=== PATIENT | female | born 1970 | race Caucasian/White ===

== ENCOUNTER 2017-11-25 13:52 | Day surgery (SDC) | payer OTHER ==
[~2017-11-25 13:52] MED LIST: LIDOCAINE 2% (SDV) 5 ML INJ
[2017-11-25] MEDS ORDERED: LIDOCAINE 1% (MPF) 30 ML INJ (16:45)
[2017-11-25] MEDS ORDERED: FENTAnyl 50 MCG/ML VIAL (16:48)
[2017-11-25] MEDS ORDERED: PROPOFOL 20 ML (16:48)
[2017-11-25] MEDS ORDERED: SUCCINYLCHOLINE CHLORIDE 100 MG/5 ML SYG IV (16:49)
[2017-11-25] MEDS ORDERED: SUGAMMADEX SODIUM 200 MG/2 ML VIAL IV (16:49)
[2017-11-25] MEDS ORDERED: CEFAZOLIN 1 GM INJ (16:49)
[2017-11-25] MEDS ORDERED: ROCURONIUM 50 MG INJ (16:49)
[2017-11-25] MEDS ORDERED: DIPHENHYDRAMINE 50 MG INJ IV (17:00)
[2017-11-25] MEDS ORDERED: ONDANSETRON 4 MG INJ IV (17:00)
[2017-11-25] MEDS ORDERED: ALBUTEROL 0.083% (NEB) 2.5 MG/3 ML AMP HHN (17:00)
[2017-11-25] MEDS ORDERED: METOCLOPRAMIDE 10 MG INJ IV (17:00)
[2017-11-25] MEDS ORDERED: MEPERIDINE 25 MG INJ IV (17:00)
[2017-11-25] MEDS ORDERED: HYDROmorphONE 1 MG/5 ML IV SYRINGE IV (17:00)
[2017-11-25] MEDS ORDERED: FENTAnyl 50 MCG/ML VIAL IV (17:00)
[2017-11-25] MEDS ORDERED: LABETALOL HCL 20MG INJ (17:36)
[2017-11-25] MEDS ORDERED: KETOROLAC 30 MG INJ IV (18:02)
[2017-11-25] MEDS: HYDROmorphONE 1 MG/5 ML IV SYRINGE IV ×2 (18:08→18:19)
[2017-11-25] MEDS: FENTAnyl 50 MCG/ML VIAL IV ×2 (18:11→18:18)
[2017-11-25] MEDS: morphine SULFATE/PF (10 MG/10 ML) INJ (18:13)
[2017-11-25] MEDS: BACITRACIN/POLYMYXIN 28.35 GM OINT TOP (18:13)
[2017-11-25] MEDS: ROPIVACAINE 0.5 % 30 ML VIAL (18:14)
[2017-11-25] MEDS ORDERED: morphine 2 MG INJ IV (18:30)
== END 2017-11-25 19:28 | disposition home or self-care (01) ==
LOC: SDS 13:52
DX: S83.282A Other tear of lateral meniscus, current injury, left knee, initial encounter (principal); M24.662 Ankylosis, left knee; M94.262 Chondromalacia, left knee; X58.XXXA Exposure to other specified factors, initial encounter; Y93.89 Activity, other specified; Y92.488 Other paved roadways as the place of occurrence of the external cause; Y99.8 Other external cause status
CPT/HCPCS: 29881